=== PATIENT | male | born 1995 ===

== ENCOUNTER 2018-07-05 10:20 | Outpatient (CLI) | payer OTHER | END 2018-07-05 15:00 | disposition home or self-care (01) | LOC: LAB 10:20 | DX: D72.818 Other decreased white blood cell count (principal); D50.8 Other iron deficiency anemias; D51.8 Other vitamin B12 deficiency anemias; I10 Essential (primary) hypertension; D51.1 Vitamin B12 deficiency anemia due to selective vitamin B12 malabsorption with proteinuria; D51.0 Vitamin B12 deficiency anemia due to intrinsic factor deficiency; D55.0 Anemia due to glucose-6-phosphate dehydrogenase [G6PD] deficiency; K90.89 Other intestinal malabsorption; E03.8 Other specified hypothyroidism ==